=== PATIENT | male | born 1975 | race African-American/Black ===

== ENCOUNTER 2017-08-24 16:32 | Inpatient (IN) | payer OTHER ==
[~2017-08-24] VITALS: Ht 177.8 cm; Wt 90.7 kg
[2017-08-25] MEDS ORDERED: NORVASC10 MG PO (10:08)
[2017-09-08] MEDS ORDERED: AMLODIPINE BESY10 MG PO (09:16)
[2017-09-08] MEDS ORDERED: VITAMIN B-121000 MCG PO (09:16)
[2017-09-08] MEDS ORDERED: LOSARTAN-HCTZ1 EACH PO (09:16)
[2017-09-08] MEDS ORDERED: FOLIC ACID1 MG PO (09:16)
== END 2017-09-08 10:49 | disposition home or self-care (01) | DRG 811 ==
LOC: ER 16:32 → MEDI 08-25 10:31 → SEC-K 08-25 10:31 → MEDI 08-25 15:20 → ICU 08-27 02:37 → MEDI 09-05 19:19 → ICU 09-05 19:19 → MEDI 09-05 19:19
PROC: 4A033R1 Measurement of Arterial Saturation, Peripheral, Percutaneous Approach (ICD-10-PCS; principal; 2017-08-25)
PROC: 4A12X4Z Monitoring of Cardiac Electrical Activity, External Approach (ICD-10-PCS; 2017-08-25)
PROC: 5A09457 Assistance with Respiratory Ventilation, 24-96 Consecutive Hours, Continuous Positive Airway Pressure (ICD-10-PCS; 2017-08-25)
PROC: B246ZZZ Ultrasonography of Right and Left Heart (ICD-10-PCS; 2017-08-26)
PROC: BW28ZZZ Computerized Tomography (CT Scan) of Head (ICD-10-PCS; 2017-08-26)
PROC: 3E0F7GC Introduction of Other Therapeutic Substance into Respiratory Tract, Via Natural or Artificial Opening (ICD-10-PCS; 2017-08-26)
PROC: BW40ZZZ Ultrasonography of Abdomen (ICD-10-PCS; 2017-08-26)
PROC: BW24Y0Z Computerized Tomography (CT Scan) of Chest and Abdomen using Other Contrast, Unenhanced and Enhanced (ICD-10-PCS; 2017-08-27)
PROC: 30233N1 Transfusion of Nonautologous Red Blood Cells into Peripheral Vein, Percutaneous Approach (ICD-10-PCS; 2017-08-27)
PROC: 06HM33Z Insertion of Infusion Device into Right Femoral Vein, Percutaneous Approach (ICD-10-PCS; 2017-08-29)
PROC: 6A551Z3 Pheresis of Plasma, Multiple (ICD-10-PCS; 2017-08-29)
PROC: 30233R1 Transfusion of Nonautologous Platelets into Peripheral Vein, Percutaneous Approach (ICD-10-PCS; 2017-08-29)
PROC: 06PYX3Z Removal of Infusion Device from Lower Vein, External Approach (ICD-10-PCS; 2017-09-08)
DX: D57.01 Hb-SS disease with acute chest syndrome (principal); J96.01 Acute respiratory failure with hypoxia; J96.02 Acute respiratory failure with hypercapnia; G93.41 Metabolic encephalopathy; I10 Essential (primary) hypertension; E86.0 Dehydration; D69.59 Other secondary thrombocytopenia; D59.4 Other nonautoimmune hemolytic anemias; I16.0 Hypertensive urgency; T80.89XA Other complications following infusion, transfusion and therapeutic injection, initial encounter; Z78.1 Physical restraint status